=== PATIENT | male | born 1980 | race Two or more races ===

== ENCOUNTER 2024-07-14 07:31 | Emergency (ER) | payer MEDICAID, OTHER ==
[~2024-07-14] VITALS: Ht 180.3 cm; Wt 105.2 kg
[2024-07-14 07:51] VITALS: BP 152/94; PULSE 69; RESP 18; TEMP 99.4; O2SAT 99
[2024-07-14] MEDS: KETOROLAC TROMETH 60MG/2ML VIAL IM ONE (08:35)
[2024-07-14] MEDS: HYDROcodone-ACET 5/325MG TAB PO ONE (08:36)
[2024-07-14] MEDS ORDERED: IBUP1TAB5 PO (08:59)
== END 2024-07-14 09:04 | disposition home or self-care (01) ==
LOC: ER 07:31
DX: S46.911A Strain of unspecified muscle, fascia and tendon at shoulder and upper arm level, right arm, initial encounter (principal); F12.90 Cannabis use, unspecified, uncomplicated; Z79.1 Long term (current) use of non-steroidal anti-inflammatories (NSAID); Z98.890 Other specified postprocedural states; W18.39XA Other fall on same level, initial encounter; Y93.89 Activity, other specified; Y92.89 Other specified places as the place of occurrence of the external cause; Y99.8 Other external cause status
CPT/HCPCS: 73030; 96372; 99283; J1885